=== PATIENT | female | born 1945 | race Caucasian/White ===

== ENCOUNTER 2017-12-05 13:02 | Outpatient (CLI) | payer MEDICARE, BC ==
[~2017-12-05] VITALS: Ht 172.7 cm; Wt 113.4 kg
[~2017-12-05 13:02] MED LIST: MECL12.584 PO
[2017-12-05 13:31] LABS: TOTAL HEMOGLOBIN 15.4 G/dl (12.0-16.0)
[2017-12-05] MEDS ORDERED: albuterol 2.5 MG/3 ML nebule ONE (13:57)
[2017-12-05] MEDS ORDERED: albuterol 2.5 MG/3 ML nebule NEB PRN (14:00)
== END 2017-12-05 23:59 | disposition home or self-care (01) ==
LOC: RT 13:02
PROVIDERS: ATTEND Internal Medicine
DX: I26.99 Other pulmonary embolism without acute cor pulmonale (principal); G47.30 Sleep apnea, unspecified; K44.9 Diaphragmatic hernia without obstruction or gangrene; I10 Essential (primary) hypertension; Z79.84 Long term (current) use of oral hypoglycemic drugs; Z79.899 Other long term (current) drug therapy
CPT/HCPCS: 85018; 94060; 94727; 94729; 94760